=== PATIENT | male | born 1985 | race Caucasian/White ===

== ENCOUNTER 2016-09-13 01:10 | Emergency (ER) | payer SELFPAY ==
[~2016-09-13] VITALS: Ht 188 cm; Wt 108.8 kg
[~2016-09-13 01:10] MED LIST: FLEXERIL10 MG PO; MOTRIN800 MG PO; PERCOCET 5/31 TABLET PO
[2016-09-13 01:59] LABS: HEMATOCRIT 46.3 % (38.0-50.0); MCH 30.1 PG (29.0-34.0); MCHC 34.3 G/DL (30.0-36.0); MCV 87.5 FL (86-99); MEAN PLAT.VOLUME 9.9 uM^3 (9.0-12.4); PLATELET COUNT 211 K/uL (156-360); RBC DIS.WIDTH-CV 12.7 % (11.8-14.6); RBC DIS.WIDTH-SD 41.1 % (39-53); RED BLOOD COUNT 5.29 M/uL (4.00-5.50); WHITE BLOOD COUNT 9.8 K/uL (4.1-10.2)
[2016-09-13 02:13] LABS: CHLORIDE 105 mEq/L (99-109); POTASSIUM 3.4 mEq/L (3.7-5.4); SODIUM 141 mEq/L (136-147)
[2016-09-13 02:15] LABS: GLUCOSE 104 mg/dL (70-99)
[2016-09-13 02:17] LABS: ANION GAP 11 MEQ/L (2-14)
[2016-09-13 02:19] LABS: GFR ESTIMATE (CALCULATED) 51 mL/min/
[2016-09-13 02:20] LABS: UREA NITROGEN (BUN) 13 mg/dL (9-23)
[2016-09-13 02:24] LABS: TROP-I INTERPRETATION NEGATIVE; TROPONIN-I < 0.01 ng/mL (0.0-0.30)
[2016-09-13] MEDS ORDERED: ZITHROMAX250 MG PO (03:37)
[2016-09-13 03:58] VITALS: BP 115/90
== END 2016-09-13 04:00 | disposition home or self-care (01) ==
LOC: EME → EDBD 01:10 → EME 04:00
DX: R07.89 Other chest pain (principal); N28.9 Disorder of kidney and ureter, unspecified; F17.200 Nicotine dependence, unspecified, uncomplicated
CPT/HCPCS: 71020; 80048; 84484; 85027; 93005; 99281; 99284